=== PATIENT | female | born 1940 | race Caucasian/White ===

== ENCOUNTER 2021-08-12 08:21 | Outpatient (REF) | payer MEDICARE, OTHER, SELFPAY ==
[2021-08-12 10:01] LABS: Anion Gap 13 (12-20); Blood Urea Nitrogen 20 mg/dL (9-16); Calcium 9.2 mg/dL (8.4-10.2); Carbon Dioxide 27 mmol/L (22-29); Chloride 102 mmol/L (96-108); Estimated Glomerular Filt Rate > 60; Potassium 4.7 mmol/L (3.3-5.1); Sodium 137 mmol/L (135-145)
[2021-08-12 10:06] LABS: Creatinine Urine 43.22 mg/dL; Total Protein Urine Random < 7 mg/dL (<12)
== END 2021-08-12 08:22 | disposition home or self-care (01) ==
LOC: HO.LAB 08:21
PROVIDERS: Internal Medicine Hypertension Specialist; Visit Provider Psychiatry & Neurology Neurology
DX: E87.1 Hypo-osmolality and hyponatremia (principal); I10 Essential (primary) hypertension
CPT/HCPCS: 36415; 80051; 82310; 82565; 84156; 84520

== ENCOUNTER 2022-02-10 09:51 | Outpatient (REF) | payer MEDICARE, OTHER, SELFPAY ==
[2022-02-10 11:01] LABS: Anion Gap 12 (12-20); Blood Urea Nitrogen 23 mg/dL (9-16); Calcium 9.5 mg/dL (8.4-10.2); Carbon Dioxide 27 mmol/L (22-29); Chloride 97 mmol/L (96-108); Estimated Glomerular Filt Rate > 60; Glucose Random 90 mg/dL (60-115); Potassium 5.1 mmol/L (3.3-5.1); Sodium 131 mmol/L (135-145)
== END 2022-02-10 09:52 | disposition home or self-care (01) ==
LOC: HO.LAB 09:51
PROVIDERS: PCP Family Medicine; Visit Provider Internal Medicine Hypertension Specialist
DX: E87.1 Hypo-osmolality and hyponatremia (principal)
CPT/HCPCS: 36415; 80048

== ENCOUNTER 2023-10-06 07:32 | Outpatient (REF) | payer MEDICARE, OTHER, SELFPAY ==
[2023-10-06 08:40] LABS: Hematocrit 30.2 % (37.0-47.0); Hemoglobin 10.1 g/dl (12.0-16.0); Mean Corpuscular HGB Conc 33.4 g/dl (31.0-35.0); Mean Corpuscular Hemoglobin 31.5 pg (27.0-33.0); Mean Corpuscular Volume 94.1 fL (80.0-98.0); Mean Platelet Volume 9.9 fL (9.4-12.3); Platelet Count 298 X10*3/uL (160-400); Red Blood Count 3.21 X10*6/uL (4.20-5.50); White Blood Count 5.6 X10*3/uL (4.8-10.8)
[2023-10-06 09:31] LABS: Anion Gap 10 (12-20); Blood Urea Nitrogen 25 mg/dL (9-16); Calcium 9.4 mg/dL (8.4-10.2); Carbon Dioxide 27 mmol/L (22-29); Chloride 104 mmol/L (96-108); Estimated Glomerular Filt Rate 52; Potassium 4.4 mmol/L (3.3-5.1); Sodium 137 mmol/L (135-145)
[2023-10-06 10:05] LABS: Parathyroid Hormone Intact 70.9 pg/mL (8.7-77.1)
== END 2023-10-06 07:33 | disposition home or self-care (01) ==
LOC: HO.LAB 07:32
PROVIDERS: Visit Provider Internal Medicine Hypertension Specialist
DX: N18.9 Chronic kidney disease, unspecified (principal)
CPT/HCPCS: 36415; 80051; 82310; 82565; 83970; 84520; 85027

== ENCOUNTER 2023-10-07 14:12 | Outpatient (AMB) | payer MEDICARE, OTHER, SELFPAY ==
--- NOTE | 2023-10-07 14:18 | HO.NEPHOV ---
HPI HPI Comments History of Present Illness Details Chaya is a elderly woman with a history of hypertension. She is here for follow-up. She has a history of mild hyponatremia. From a renal standpoint she has no specific complaints today. She monitors her blood pressure at home. Home readings have been good [facility] Medical History (Updated 10/07/23 @ 14:37 by Ed Vigil MD) Hypertension CKD (chronic kidney disease) Family History Daughter Colon cancer Mother Hypertension Father Hypertension Social History (Updated 10/07/23 @ 14:28 by Corrie Stanley MA) Alcohol intake: never Patient Tobacco Use Status: Never used Tobacco Vital Signs 10/07/23 14:23 Height 5 ft 7 in Weight 167 lb BMI 26.2 BP 156/60 H Blood Pressure Location Rt brachial Position Sitting Pulse 58 Pulse Source Pulse Oximeter Pulse Oximetry (%) 99 Oxygen Delivery Method Room Air Physical Exam Vital Signs: Last Vital Signs Pulse 58 10/07/23 14:23 BP 156/60 H 10/07/23 14:23 Pulse Ox 99 10/07/23 14:23 Oxygen Delivery Method Room Air 10/07/23 14:23 BMI result Body Mass Index 26.2 Const General: comfortable Nutritional Appearance: well nourished Orientation/consciousness: patient oriented x3 HEENT Head: No normal to inspection Mouth: moist mucous membranes Neck Neck: Yes supple and Yes no JVD Resp Auscultation: clear to auscultation bilaterally, no rales and rub present Cardio Jugular venous distension: no JVD Palpation: no palpable S3 and no palpable S4 Heart sounds: no rubs GI Palpation (GI): Soft to palpation and nontender Percussion: No Fluid wave present General: Yes no CVA tenderness Back/Spine/Pelvis Back: no CVA tenderness Skin General skin exam: no rashes or lesions noted Neuro General: patient oriented x3 Extrem General: Yes no pedal edema and No clubbing Assessment & Plan Assessment & Plan (1) CKD (chronic kidney disease): Code(s): N18.9 - Chronic kidney disease, unspecified Plan: Renal Function at baseline (2) Hypertension: Code(s): I10 - Essential (primary) hypertension Plan: BP is sub optimal today Home BP is good Plan Elderly woman with hypertension The office setting was elevated today. Home readings have been acceptable. She could have a component of white coat effect to explain this. At this point I will continue the current antihypertensive medications. Increase her to stay on low-sodium diet and keep monitoring blood pressure at home. If the home blood pressure readings more than 140 mmHg systolic then I would titrated medications. Increase it to stand low-sodium diet. Serum creatinine stable 1.0. 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 History of mild hyponatremia and the recent sodiums in the normal range. She also has mild anemia . Hemoglobin is relatively stable. Coding Level of Care Code Est Pt Level 3 (18220) Diagnoses CKD (chronic kidney disease) N18.9 Hypertension I10 Results Reviewed Results Reviewed: A1c was 5.6 in June 2023 Nephrology Results: Hgb 10.1 g/dl (12.0-16.0) L 10/06/23 WBC 5.6 X10*3/uL (4.8-10.8) 10/06/23 Plt Count 298 X10*3/uL (160-400) 10/06/23 Sodium 137 mmol/L (135-145) 10/06/23 Potassium 4.4 mmol/L (3.3-5.1) 10/06/23 Chloride 104 mmol/L (96-108) 10/06/23 Carbon Dioxide 27 mmol/L (22-29) 10/06/23 BUN 25 mg/dL (9-16) H 10/06/23 Creatinine 1.01 mg/dL (0.5-1.4) 10/06/23 Calcium 9.4 mg/dL (8.4-10.2) 10/06/23 PTH Intact 70.9 pg/mL (8.7-77.1) 10/06/23 Urine Protein NEG (NEG - TRACE) 05/25/19 Urine Creatinine 43.22 mg/dL 08/12/21 Protein/Creatinin Ratio TNP 08/12/21
[2023-10-07 14:23] VITALS: BP 156/60; PULSE 58; O2SAT 99; BMI 26.2
== END 2023-10-07 14:48 | disposition home or self-care (01) ==
PROVIDERS: PCP Family Medicine; Visit Provider Internal Medicine Hypertension Specialist
DX: I12.9 Hypertensive chronic kidney disease with stage 1 through stage 4 chronic kidney disease, or unspecified chronic kidney disease (principal); N18.9 Chronic kidney disease, unspecified
CPT/HCPCS: 99213

== ENCOUNTER → 2023-10-07 14:12 | Outpatient (BNVA) | payer MEDICARE, OTHER, SELFPAY | PROVIDERS: PCP Family Medicine; Visit Provider Internal Medicine Hypertension Specialist | DX: I12.9 Hypertensive chronic kidney disease with stage 1 through stage 4 chronic kidney disease, or unspecified chronic kidney disease (principal); N18.9 Chronic kidney disease, unspecified | CPT/HCPCS: 99212 ==